=== PATIENT | male | born 1990 | race Hispanic/Latino ===

== ENCOUNTER 2021-12-11 18:08 | Emergency (ER) | payer SELFPAY ==
--- OUTSIDE RECORDS SUMMARY | 2021-12-11 18:11 | XMS REPORT | Continuity of Care Document ---
:1990 Author Organization [facility] t Address [address] [place] [address] Dr. Ann [address] [place] [id number] Care Team Providers Name Role Phone Unavailable Unavailable Unavailable Problems This patient has no known problems. Allergies, Adverse Reactions, Alerts This patient has no known allergies or adverse reactions. Medications This patient has no known medications. Procedures This patient has no known procedures. Results Test Description Test Time Test Comments Results Result Comments Source SARS-CoV-2 (COVID-19), RT-PCR/TMA 2021-08-07 03:07:25 Test Item Value Reference Range Interpretation Comme nts SARS-CoV-2 INTERPRETATION POSITIVE SEE NOTE A S ARS-CoV-2 RNA DETECTEDPositive (test code = 92206) results are indicative of the presence of JAILYN S-CoV-2 RNA;clinical co rrelation with patient history and other diagnosticinfor mation is necessary to de termine patient infection statu s.Positive results do not rule out bacterial infection or co -infectionwith other viruses. Positive and negative predic tive values oftesting are h ighly dependent on prevalence. SOURCE (test code = 60464) NASOPHARYNGEAL Note: Methodology is Seamus Santhosh Real-Time RT-PC R. The expected result or ref erence range is NEGATIVE (Not D etected). For more information reg arding COVID-19 testing to incl ude clinicalinforma tion, methodology detail, intende d use, FDA authorization a ndrecommended fact sheets for margarita ents or healthcare providers, see NewTest Announcement: S ARS-CoV-2 (COVID-19) by N AAT at URL below (note,fact shee ts are provided by method given in report:https:// [email or web address] [email or web address]/client -communications/ Alternatively, see downloadable PDF fact sheet at:https://www. [facility]/COVID- 19-RT-PCR UNLESS OTHERWISE INDICATED, ALL TESTING PERFORMED [facility], [facility]. [address] [place] [address], [place] [address] LABORATORY DIRE CTOR: BEN RODGERS M.D. CLIA NUMBER [id number] [facility]. [id number]
--- NOTE | 2021-12-11 19:55 | RAD REPORT ---
EXAM DESCRIPTION: RAD - Knee Left 3 View - 12/11/2021 7:27 pm CLINICAL HISTORY: PAIN COMPARISON: No comparisons FINDINGS: No fractures confirmed there is no dislocation or periosteal reaction. Faint lucency along the inferior aspect of the patella on the lateral view does not have a correlate on the other sequen janki. Correlation is needed with any focal patella pain. Anterior soft tissues at the patella are prom inent.No joint effusion seen. No joint space narrowing. No soft tissue abnormality. IMPRESSION: No acute fracture confirmed and no joint effusion identified. Lucency along the inferior aspect patella believed to be artifact. Three patella anterior soft tissue swelling. Clinical concerns for internal derangement or occult bony injury could be further assessed with MR im aging.
[2021-12-11] MEDS ORDERED: HYDROCODONE/APAP 10/325 TAB ONE (20:40)
--- NOTE | 2021-12-11 20:41 | ER ---
Nurse's Notes [facility] Name: Lev Rod Age: 31 yrs Sex: Male : 1990 Arrival Date: 12/11/2021 Time: 18:11 Bed Waiting Private MD: Diagnosis: Contusion of left knee Presentation: 12/11 18:41 Chief complaint: Patient states: Fell 3 feet onto L knee. Pt c/o L knee pain and ss decreased ROM. Injury occurred at 0800 this AM. Coronavirus screen: Client denies travel out of the [place] in the last 14 days. Ebola Screen: Patient denies exposure to infectious person. Patient denies travel to an Ebola-affected area in the 21 days before illness onset. Initial Sepsis Screen: Does the patient meet any 2 criteria? No. Patient's initial sepsis screen is negative. Does the patient have a suspected source of infection? No. Patient's initial sepsis screen is negative. Risk Assessment: Do you want to hurt yourself or someone else? Patient reports no desire to harm self or others. Onset of symptoms was December 11, 2021. 18:41 Method Of Arrival: Wheelchair ss 18:41 Acuity: ASHLIE 4 ss Triage Assessment: 20:56 General: Appears uncomfortable, Behavior is calm, cooperative, appropriate for age. tw5 Historical: - Allergies: 18:42 No Known Allergies; ss - Home Meds: 18:42 None [Active]; ss - PMHx: 18:42 None; ss - PSHx: 18:42 None; ss - Immunization history:: Client reports having NOT received the Covid vaccine. - Social history:: Smoking status: Patient reports the use of cigarette tobacco products, smokes one-half pack cigarettes per day. Screenin:32 Abuse screen: Denies threats or abuse. Denies injuries from another. Nutritional tw5 screening: No deficits noted. Tuberculosis screening: No symptoms or risk factors identified. Fall Risk None identified. Assessment: 20:32 General: Reports "I was doing some side work and I fell off the trailer that was about tw5 3 feet high.". Pain: Complains of pain in left knee Pain currently is 4 out of 10 on a pain scale. at worst was 8 out of 10 on a pain scale. Vital Signs: 18:42 Pulse 93; Resp 15; Temp 98.6(TE); Pulse Ox 100% ; Weight 95.25 kg; Height 5 ft. 10 in. ss (177.80 cm); Pain 4/10; 18:44 BP 119 / 82; ss 18:42 Body Mass Index 30.13 (95.25 kg, 177.80 cm) ED Course: 18:11 Patient arrived in ED. mr 18:41 Triage completed. ss 18:42 Arm band placed on right wrist. ss 19:09 Nathan Santiago PA is PHCP. cp 19:09 Daina Lowe MD is Attending Physician. cp 19:28 XRAY Knee LEFT 3 view In Process Unspecified. EDMS 20:32 Patient has correct armband on for positive identification. tw5 20:40 Beto Hong MD is Referral Physician. cp 20:47 No provider procedures requiring assistance completed. Patient did not have IV access tw5 during this emergency room visit. Knee immobilizer applied on left knee. Administered Medications: 20:40 Drug: [place] (HYDROcodone-acetaminophen) 10 mg-325 mg 1 tabs Route: PO; tw5 Medication: 20:32 VIS not applicable for this client. tw5 Outcome: 20:40 Discharge ordered by . cp 20:47 Discharged to home with crutches, with family. tw5 20:47 Condition: good 20:47 Discharge instructions given to patient, Instructed on discharge instructions, follow up and referral plans. crutch walking, Demonstrated understanding of instructions, follow-up care, crutch walking, Prescriptions given X 2. 20:57 Patient left the ED. tw5 Signatures: Dispatcher [employer] LAVT Suzanna Jacobsen Kiya Arzola, RN RN Nathan Santiago PA PA Chelsey Ponce tw5
--- NOTE | 2021-12-11 20:41 | EDPHYS ---
Physician Documentation [facility] Name: Lev Rod Age: 31 yrs Sex: Male : 1990 Arrival Date: 12/11/2021 Time: 18:11 Bed Waiting Private MD: ED Physician Daina Lowe HPI: 12/11 20:30 This 31 yrs old Male presents to ER via Wheelchair with complaints of Fall cp Injury, Knee Injury. 20:30 Details of fall: The patient fell from a height, approximately 3 feet. cp 20:30 Onset: The symptoms/episode began/occurred today. Associated injuries: The patient cp sustained left knee, abrasion, contusion, painful injury. Historical: - Allergies: 18:42 No Known Allergies; ss - Home Meds: 18:42 None [Active]; ss - PMHx: 18:42 None; ss - PSHx: 18:42 None; ss - Immunization history:: Client reports having NOT received the Covid vaccine. - Social history:: Smoking status: Patient reports the use of cigarette tobacco products, smokes one-half pack cigarettes per day. ROS: 20:35 MS/extremity: Positive for pain, swelling, tenderness, of the left knee. cp 20:35 Constitutional: Negative for body aches, chills, fever, poor PO intake. cp 20:35 Neck: Negative for pain with movement, pain at rest, stiffness. cp 20:35 Back: Negative for pain at rest, pain with movement. 20:35 Neuro: Negative for altered mental status, numbness, weakness. 20:35 All other systems are negative. Exam: 20:40 Constitutional: The patient appears in no acute distress, alert, awake, well developed, cp well nourished, uncomfortable. 20:40 Head/Face: Normocephalic, atraumatic. cp 20:40 Chest/axilla: Inspection: normal. 20:40 Cardiovascular: Rate: normal. 20:40 Respiratory: the patient does not display signs of respiratory distress, Respirations: normal, no use of accessory muscles. 20:40 Abdomen/GI: Exam negative for discomfort, distension, guarding, Inspection: abdomen appears normal. 20:40 Back: pain, is absent, ROM is normal. 20:40 Musculoskeletal/extremity: Extremities: grossly normal except: noted in the left knee: abrasion, contusion, pain, swelling, tenderness, ROM: limited passive range of motion due to pain, in the left knee, Perfusion: the extremity is normally perfused throughout, Sensation intact. overlying skin of left knee with no erythema noted. Vital Signs: 18:42 Pulse 93; Resp 15; Temp 98.6(TE); Pulse Ox 100% ; Weight 95.25 kg; Height 5 ft. 10 in. ss (177.80 cm); Pain 4/10; 18:44 BP 119 / 82; ss 18:42 Body Mass Index 30.13 (95.25 kg, 177.80 cm) ss Procedures: 20:45 Splinting: Splint applied to left knee using knee immobilizer, applied by nurse. cp Examined by me, post splint application: neurovascular intact, Patient tolerated well. MDM: 20:40 Patient medically screened. cp 20:40 Data reviewed: vital signs, nurses notes, radiologic studies, plain films. cp 20:40 Differential diagnosis: contusion, fracture, multiple trauma. Test interpretation: by cp ED physician or midlevel provider: plain radiologic studies. Counseling: I had a detailed discussion with the patient and/or guardian regarding: the historical points, exam findings, and any diagnostic results supporting the discharge/admit diagnosis, radiology results, the need for outpatient follow up, a orthopedic surgeon, to return to the emergency department if symptoms worsen or persist or if there are any questions or concerns that arise at home. Response to treatment: the patient's symptoms have mildly improved after treatment, and as a result, I will discharge patient. 12/11 18:44 Order name: XRAY Knee LEFT 3 view; Complete Time: 20:39 ss 12/11 20:40 Order name: Knee Immobilizer cp Administered Medications: 20:40 Drug: [place] (HYDROcodone-acetaminophen) 10 mg-325 mg 1 tabs Route: PO; tw5 Disposition Summary: 12/11/21 20:40 Discharge Ordered Location: Home cp Problem: new cp Symptoms: have improved cp Condition: Stable cp Diagnosis - Contusion of left knee cp Followup: cp - With: Beto Hong MD - When: 2 - 3 days - Reason: Recheck today's complaints Discharge Instructions: - Discharge Summary Sheet cp - How to Use a Knee Immobilizer cp - Acute Knee Pain, Adult cp Forms: - Medication Reconciliation Form cp - Thank You Letter cp - Antibiotic Education cp - Prescription Opioid Use cp Prescriptions: - Diclofenac Sodium 75 mg Oral Tablet Sustained Release - take 1 tablet by ORAL route 2 times per day; 30 tablet; Refills: 0, Product cp Selection Permitted - Tylenol-Codeine #3 300 mg-30 mg Oral - take 2 tablet by ORAL route every 6-8 hours As needed; 20 tablet; Refills: 0, cp Product Selection Permitted Signatures: Dispatcher [employer] Kiya Mendiola RN RN ss Nathan Santiago PA PA Chelsey Ponce tw5
[2021-12-11 21:04] VITALS: TEMP 98.6; O2SAT 100
[2021-12-11 21:05] VITALS: BP 119/82
== END 2021-12-11 20:57 | disposition home or self-care (01) ==
LOC: ER 18:08
DX: S80.02XA Contusion of left knee, initial encounter (principal); W17.89XA Other fall from one level to another, initial encounter; F17.210 Nicotine dependence, cigarettes, uncomplicated
CPT/HCPCS: 99284

== ENCOUNTER 2025-04-19 20:20 | Emergency (ER) | payer SELFPAY ==
[2025-04-19] MEDS ORDERED: DIPHENHYDRAMINE 50 MG/ML VIAL ONE ×2 (20:57→21:22)
[2025-04-19] MEDS ORDERED: FAMOTIDINE 20 MG/2 ML VIAL IV ONE (20:57)
[2025-04-19] MEDS ORDERED: METHYLPREDNISOLONE 125 MG INJ ONE (20:57)
[2025-04-19] MEDS ORDERED: NA CHLORIDE 0.9% 0 ML ONE (20:57)
[2025-04-19] MEDS ORDERED: NA CHLORIDE 0.9% 1,000 ML ONE ×2 (21:22→23:26)
[2025-04-19] MEDS ORDERED: KETOROLAC 30 MG/ML INJ ONE (21:22)
[2025-04-19] MEDS ORDERED: METOCLOPRAMIDE 10 MG/2mL INJ ONE (21:22)
[2025-04-19 21:27] LABS: Absolute Lymphocytes (CBC) 1.5 K/uL (0.7-4.9); Hematocrit 45.7 % (39.6-49.0); Hemoglobin 15.5 g/dL (13.6-17.9); MCH 30.6 pg (27.0-35.0); MCHC 34.0 g/dL (32.0-36.0); MCV 90.2 fL (80-100); MPV 8.8 fL (7.6-11.3); Nucleated RBC Absolute Count 0.0 (0-0); Nucleated Red Blood Cells % 0.1 % (0-0); RBC Red Blood Cell Count 5.06 M/uL (4.33-5.43); White Blood Count 10.50 thou/uL (4.3-10.9)
[2025-04-19 21:33] LABS: PT Prothrombin Time 12.8 SECONDS (10-13.0); Protime INR 1.14
--- NOTE | 2025-04-19 21:35 | RAD REPORT ---
Procedure: Chest Single View HISTORY: Chest pain COMPARISON: 2012 FINDINGS: The lungs appear clear of acute infiltrate. No significant pleural effusion noted. The heart is normal size.. Old right clavicular fracture. IMPRESSION: No acute abnormality is displayed.
[2025-04-19] MEDS ORDERED: ONDANSETRON 4 MG/2 ML VIAL ONE (21:43)
[2025-04-19 21:51] LABS: ALT/SGPT 24.0 U/L (16-61); AST/SGOT 14.0 U/L (15-37); Albumin 4.5 g/dL (3.4-5.0); Albumin/Globulin Ratio 1.5 (1.1-1.8); Alkaline Phosphatase 58.0 U/L (45-117); Anion Gap 10.4 mEq/L (5.0-15.0); BUN Blood Urea Nitrogen 13.0 mg/dL (7-18); Bilirubin Indirect, Calculated 1.3 mg/dL (0.2-0.8); Globulin 3.0 g/dL (2.3-3.5); Glucose Level 123.0 mg/dL (74-106); Magnesium 1.9 mg/dL (1.6-2.4); NT PRO-BNP 14.0 pg/mL (<125); Potassium 3.4 mEq/L (3.5-5.1); Troponin High Sensitivity 3.5 pg/mL (<58.9)
--- NOTE | 2025-04-19 22:16 | RAD REPORT ---
EXAM: CT brain without contrast HISTORY: Headache COMPARISON: None TECHNIQUE: Multiple contiguous axial images were obtained and a CT of the brain without contrast.. Sagittal and coronal reconstruction performed. Automated exposure control, adjustment of the mA and/or kV according to patient size, and/or iterative reconstruction. Unless otherwise specified, incidental f indings do not require dedicated imaging follow-up FINDINGS: An intracranial bleed is not seen Ventricles are normal caliber No extra-axial fluid collection noted No significant hypodensity within the brain No fluid within the visualized sinuses or mastoids noted. IMPRESSION: No acute intracranial abnormality noted. If the patient continues to have symptoms to suggest an acute intracranial abnormality then MRI of th e brain would be recommended.
[2025-04-19 22:43] LABS: Influenza A Ag Negative; Influenza B Ag Negative; SARS-CoV-2 Antigen Rapid Res Negative (Negative)
[2025-04-19] MEDS ORDERED: ACETAMINOPHEN 500 MG TAB ONE (23:25)
[2025-04-19] MEDS ORDERED: MORPHINE 4 MG/ML SYR ONE (23:26)
--- NOTE | 2025-04-20 00:48 | ER ---
Nurse's Notes [facility] Name: Lev Rod Age: 35 yrs Sex: Male : 1990 Arrival Date: 04/19/2025 Time: 20:20 Bed 19 Private MD: Diagnosis: Acute viral syndrome, acute viral gastroenteritis, acute moderate headache Presentation: 04/19 20:31 Chief complaint: Patient states: c/o migraine for 6 days 10/10 stabbing behing right me1 eye and to posterior head with n/v. Near syncope yesterday and today, L arm numbness that started today and rash to L abdomen from 2 days ago. Actively vomiting in triage. Coronavirus screen: Vaccine status: Patient reports being unvaccinated. Ebola Screen: No symptoms or risks identified at this time. Initial Sepsis Screen: Does the patient meet any 2 criteria? No. Patient's initial sepsis screen is negative. Does the patient have a suspected source of infection? No. Patient's initial sepsis screen is negative. Risk Assessment: Do you want to hurt yourself or someone else? Patient reports no desire to harm self or others. Onset of symptoms was April 13, 2025. 20:31 Method Of Arrival: Wheelchair me1 20:31 Acuity: ASHLIE 3 me1 Triage Assessment: 20:33 Headache History: The patient has had previous headaches and this one is less severe me1 than previous episodes. 04/20 01:07 Pain: Pain began 6 days ago. zm Historical: - Allergies: 04/19 20:33 Amoxicillin; me1 - PMHx: 20:33 migraines; me1 - PSHx: 20:33 None; me1 - Immunization history:: Adult Immunizations up to date. - Infectious Disease History:: Denies. - Social history:: Smoking status: Patient reports the use of cigarette tobacco products, smokes one-half pack cigarettes per day. - Family history:: not pertinent. Screenin:33 [facility] ED Fall Risk Assessment (Adult) History of falling in the last 3 months, zm including since admission No falls in past 3 months (0 pts) Confusion or Disorientation No (0 pts) Intoxicated or Sedated No (0 pts) Impaired Gait No (0 pts) Mobility Assist Device Used No (0 pt) Altered Elimination No (0 pt) Score/Fall Risk Level 0 - 2 = Low Risk Oriented to surroundings, Maintained a safe environment, Educated pt \T\ family on fall prevention, incl call for assistance when getting out of bed, Assessed \T\ reinforced patient's understanding of fall precautions, Hourly rounding (assess needs \T\ fall precautionary measures) done, Used ambulatory aids as needed (educated on \T\ assisted with), Used gait belt as appropriate. Abuse screen: Denies threats or abuse. Denies injuries from another. Nutritional screening: No deficits noted. Tuberculosis screening: No symptoms or risk factors identified. Assessment: 21:29 General: Appears in no apparent distress. uncomfortable, Behavior is calm, cooperative. zm Pain: Complains of pain in occipital area and base of the skull Pain currently is 10 out of 10 on a pain scale. Also complains of. Neuro: Level of Consciousness is awake, alert, obeys commands, Oriented to person, place, time, situation, Speech is normal, Facial symmetry appears normal, Pupils are PERRLA, Reports blurred vision when headache gets really bad dizziness, since this morning a syncopal episode. Cardiovascular: Patient's skin is warm and dry. Respiratory: Airway is patent Respiratory effort is even, unlabored, Respiratory pattern is regular, symmetrical. GI: Abdomen is flat, non-distended, Abd is soft and non tender X 4 quads. Derm: Rash noted that is red, on left low back, left mid back and abdomen. 22:13 Reassessment: Medication complete, pt states that he feels worse after receiving bm8 medications. pt is lying in bed appears to be trying to sleep. 23:04 Reassessment: Patient appears in no apparent distress at this time. Patient and/or bm8 family updated on plan of care and expected duration. Pain level reassessed. Patient is alert, oriented x 3, equal unlabored respirations, skin warm/dry/pink. Patient states symptoms have not improved. 04/20 00:24 Reassessment: Patient appears in no apparent distress at this time. Patient and/or bm8 family updated on plan of care and expected duration. Pain level reassessed. Patient is alert, oriented x 3, equal unlabored respirations, skin warm/dry/pink. Patient states feeling better. Patient states symptoms have improved. Pain: Pain currently is 4 out of 10 on a pain scale. Neuro: No deficits noted. Level of Consciousness is awake, alert, obeys commands, Oriented to person, place, time, situation. 01:04 Reassessment: Patient appears in no apparent distress at this time. Patient and/or zm family updated on plan of care and expected duration. Pain level reassessed. Patient is alert, oriented x 3, equal unlabored respirations, skin warm/dry/pink. Patient states feeling better. Patient states symptoms have improved. Pain: Pain currently is 0 out of 10 on a pain scale. Vital Signs: 04/19 20:31 BP 138 / 63; Pulse 68; Resp 18; Temp 98.4; Pulse Ox 96% ; Weight 88.45 kg; Height 5 ft. me1 10 in. ; Pain 10/10; 22:13 Pulse 55; Resp 17; Temp 98.4; Pulse Ox 99% ; Pain 10/10; bm8 23:04 BP 118 / 54; Pulse 51; Resp 15; Temp 98.4; Pulse Ox 97% ; Pain 9/10; bm8 04/20 00:24 BP 125 / 74; Pulse 51; Resp 17; Temp 98.4; Pulse Ox 100% ; Pain 0/10; bm8 01:04 BP 127 / 78; Pulse 71; Resp 18; Temp 98.5; Pulse Ox 98% on R/A; Pain 0/10; zm 04/19 20:31 Body Mass Index 27.98 (88.45 kg, 177.8 cm) [facility] 04/19 20:31 Pain Scale: Adult me1 22:13 Pain Scale: Adult bm8 23:04 Pain Scale: Adult bm8 04/20 00:24 Pain Scale: Adult bm8 01:04 Pain Scale: Adult zm 04/19 22:13 pt refuses to hold still long enough for bp reading bm8 [place] Coma Score: 22:13 Eye Response: spontaneous(4). Motor Response: obeys commands(6). Verbal Response: bm8 oriented(5). Total: 15. 23:04 Eye Response: spontaneous(4). Motor Response: obeys commands(6). Verbal Response: bm8 oriented(5). Total: 15. 04/20 00:24 Eye Response: spontaneous(4). Motor Response: obeys commands(6). Verbal Response: bm8 oriented(5). Total: 15. 01:04 Eye Response: spontaneous(4). Motor Response: obeys commands(6). Verbal Response: zm oriented(5). Total: 15. 06:51 Eye Response: spontaneous(4). Motor Response: obeys commands(6). Verbal Response: sp4 oriented(5). Total: 15. ED Course: 04/19 20:23 Patient arrived in ED. gm2 20:29 Cy Bridges MD is Attending Physician. sp4 20:33 Triage completed. me1 20:33 Arm band placed on Patient placed in waiting room. me1 20:59 Brandee Larkin, RN is Primary Nurse. zm 21:15 Inserted saline lock: 18 gauge in right antecubital area, using aseptic technique. zm Blood collected. Flushed with 10 mL NS. 21:15 Initial lab(s) drawn, by tx, sent to lab. EKG done, by ED staff, reviewed by Cy Bridges MD. 21:21 XRAY Chest (1 view) In Process Unspecified. EDMS 21:21 Basic Metabolic Panel Sent. zm 21:21 CBC with Diff Sent. zm 21:21 LFT's Sent. zm 21:21 Magnesium Sent. zm 21:21 NT PRO-BNP Sent. zm 21:21 PT-INR Sent. zm 21:21 Troponin HS Sent. 21:33 Patient has correct armband on for positive identification. Bed in low position. Call light in reach. Side rails up X 1. Adult w/ patient. Client placed on continuous cardiac and pulse oximetry monitoring. NIBP monitoring applied. laboratory monitor on. Pulse ox on. NIBP on. Door closed. Noise minimized. Lights dimmed. Warm blanket given. Verbal reassurance given. 21:47 CT Head Brain wo Cont In Process Unspecified. EDMS 22:13 No provider procedures requiring assistance completed. bm8 04/20 01:04 Provided Education on: post ER care. zm 01:04 IV discontinued, intact, bleeding controlled, No redness/swelling at site. Pressure zm dressing applied. Administered Medications: 04/19 21:26 Drug: metoCLOPramide IVP 10 mg IVP once; over 1 to 2 minutes Route: IVP; Site: right zm antecubital; :26 Follow up: Response: No adverse reaction 8 : Drug: diphenhydrAMINE IVP 25 mg IVP once Route: IVP; Site: right antecubital; zm 22:26 Follow up: Response: No adverse reaction bm8 21:26 Drug: Ketorolac IVP 30 mg IVP once Route: IVP; Site: right antecubital; zm 22:26 Follow up: Response: No adverse reaction bm8 21:27 Drug: NS 0.9% IV 1000 ml IV at 1000 ml once; to be given as a bolus over 60 minutes zm Route: IV; Rate: 1000 ml; Site: right antecubital; 22:26 Follow up: Response: No adverse reaction; IV Status: Completed infusion bm8 21:50 Drug: Droperidol IVP 2.5 mg IVP once Route: IVP; Site: right antecubital; bm8 22:25 Follow up: Response: No adverse reaction bm8 21:51 Drug: Ondansetron IVP 8 mg IVP once; over 2 minutes Route: IVP; Site: right antecubital;bm8 22:25 Follow up: Response: No adverse reaction bm8 23:35 Drug: morphine IVP or IV 4 mg IVP once over 4 mins Route: IVP; Infused Over: 4 mins; bm8 Site: right antecubital; 04/20 00:28 Follow up: Response: No adverse reaction bm8 04/19 23:35 Drug: NS 0.9% IV 1000 ml IV at 1000 ml once; to be given as a bolus over 60 minutes bm8 Route: IV; Rate: 1000 ml; Site: right antecubital; 04/20 00:28 Follow up: Response: No adverse reaction; IV Status: Completed infusion bm8 04/19 23:35 Drug: Droperidol IVP 2.5 mg IVP once Route: IVP; Site: right antecubital; bm8 04/20 00:28 Follow up: Response: No adverse reaction bm8 04/19 23:35 Drug: Acetaminophen PO 1000 mg PO once Route: PO; bm8 04/20 00:28 Follow up: Response: No adverse reaction bm8 Medication: 04/19 21:35 VIS not applicable for this client. jaymie Outcome: 04/20 00:47 Discharge ordered by MD. wick 01:04 Discharged to home ambulatory, with family, jaymie 01:04 Condition: stable 01:04 Discharge instructions given to patient, family, Instructed on discharge instructions, follow up and referral plans. no drinking with medication, no driving heavy equipment, medication usage, safety practices, Demonstrated understanding of instructions, follow-up care, medications, Prescriptions given X 4, 01:07 Patient left the ED. zm Signatures: Dispatcher [employer] Brandee Dykes, RN RN zm Cy Bridges MD MD sp4 Nata Hoover RN RN tx1 Madelin Ba 2 Jimmy Valdovinos RN RN bm8 Corrections: (The following items were deleted from the chart) 04/19 21:33 21:29 Neuro: Level of Consciousness is awake, alert, obeys commands, Oriented to zm person, place, time, situation, zm
--- NOTE | 2025-04-20 00:48 | EDPHYS ---
Physician Documentation [facility] Name: Lev Rod Age: 35 yrs Sex: Male : 1990 Arrival Date: 04/19/2025 Time: 20:20 Bed 19 Private MD: ED Physician Cy Bridges HPI: 04/19 20:29 This 35 yrs old Male presents to ER via Unassigned with complaints of Numbness sp4 Of Arm, Headache, Syncope. 04/20 06:51 35-year-old male presents with complaint of acute headache, fever, chills, body aches, sp4 and vomiting. Historical: - Allergies: 04/19 20:33 Amoxicillin; me1 - PMHx: 20:33 migraines; me1 - PSHx: 20:33 None; me1 - Immunization history:: Adult Immunizations up to date. - Infectious Disease History:: Denies. - Social history:: Smoking status: Patient reports the use of cigarette tobacco products, smokes one-half pack cigarettes per day. - Family history:: not pertinent. ROS: 04/20 06:51 Constitutional: Positive for fever, positive chills, positive headache, positive near sp4 syncope, positive for acute vomiting, All other systems are negative, Exam: 06:51 Constitutional: This is a well developed, well nourished patient who is awake, alert, sp4 ill-appearing, vomiting on examination Head/Face: Normocephalic, atraumatic. Eyes: Pupils equal round and reactive to light, extra-ocular motions intact. Lids and lashes normal. Conjunctiva and sclera are not injected. Cornea within normal limits. Periorbital areas with no swelling, redness, or edema. ENT: Nares patent. No nasal discharge, no septal abnormalities noted. Tympanic membranes are normal and external auditory canals are clear. Oropharynx with no redness, swelling, or masses, exudates, or evidence of obstruction, uvula midline. Mucous membranes moist. Neck: Trachea midline, no thyromegaly or masses palpated, and no cervical lymphadenopathy. Supple, full range of motion without nuchal rigidity, or vertebral point tenderness. Chest/axilla: Normal chest wall appearance and motion. Nontender with no deformity. No lesions are appreciated. Cardiovascular: Regular rate and rhythm with a normal S1 and S2. No gallops, murmurs, or rubs. No pulse deficits. Respiratory: Lungs have equal breath sounds bilaterally, clear to auscultation and percussion. No rales, rhonchi or wheezes noted. No increased work of breathing, no retractions or nasal flaring. Abdomen/GI: Soft, with normal bowel sounds. No distension or tympany. No guarding or rebound. No evidence of tenderness throughout. Back: No spinal tenderness. No costovertebral tenderness. Skin: Warm, dry with normal turgor. Normal color with no rashes, no lesions, and no evidence of cellulitis. MS/ Extremity: Pulses equal, no cyanosis. Neurovascular intact. Full, normal range of motion. Neuro: Awake and alert, GCS 15, oriented to person, place, time, and situation. Cranial nerves II-XII grossly intact. Motor strength 5/5 in all extremities. Sensory grossly intact. Psych: Awake, alert, with orientation to person, place and time. Behavior, mood, and affect are within normal limits 06:51 ECG was reviewed by the Attending Physician. EKG at 2114 normal sinus rhythm rate 62 normal EKG Vital Signs: 04/19 20:31 BP 138 / 63; Pulse 68; Resp 18; Temp 98.4; Pulse Ox 96% ; Weight 88.45 kg; Height 5 ft. me1 10 in. ; Pain 10/10; 22:13 Pulse 55; Resp 17; Temp 98.4; Pulse Ox 99% ; Pain 10/10; bm8 23:04 BP 118 / 54; Pulse 51; Resp 15; Temp 98.4; Pulse Ox 97% ; Pain 9/10; bm8 04/20 00:24 BP 125 / 74; Pulse 51; Resp 17; Temp 98.4; Pulse Ox 100% ; Pain 0/10; bm8 01:04 BP 127 / 78; Pulse 71; Resp 18; Temp 98.5; Pulse Ox 98% on R/A; Pain 0/10; zm 04/19 20:31 Body Mass Index 27.98 (88.45 kg, 177.8 cm) ct1 04/19 20:31 Pain Scale: Adult me1 22:13 Pain Scale: Adult bm8 23:04 Pain Scale: Adult bm8 04/20 00:24 Pain Scale: Adult bm8 01:04 Pain Scale: Adult zm 04/19 22:13 pt refuses to hold still long enough for bp reading bm8 [place] Coma Score: 22:13 Eye Response: spontaneous(4). Motor Response: obeys commands(6). Verbal Response: bm8 oriented(5). Total: 15. 23:04 Eye Response: spontaneous(4). Motor Response: obeys commands(6). Verbal Response: bm8 oriented(5). Total: 15. 04/20 00:24 Eye Response: spontaneous(4). Motor Response: obeys commands(6). Verbal Response: bm8 oriented(5). Total: 15. 01:04 Eye Response: spontaneous(4). Motor Response: obeys commands(6). Verbal Response: zm oriented(5). Total: 15. 06:51 Eye Response: spontaneous(4). Motor Response: obeys commands(6). Verbal Response: sp4 oriented(5). Total: 15. MDM: 04/19 20:30 Medical Screening Exam initiated sp4 21:14 Differential diagnosis: contusion, abrasion, tendonitis, Acute viral illness. Data sp4 reviewed: vital signs, nurses notes, lab test result(s), EKG, radiologic studies, CT scan, plain films. ED course: EXAM: CT brain without contrast HISTORY: Headache COMPARISON: None TECHNIQUE: Multiple contiguous axial images were obtained and a CT of the brain without contrast.. Sagittal and coronal reconstruction performed. Automated exposure control, adjustment of the mA and/or kV according to patient size, and/or iterative reconstruction. Unless otherwise specified, incidental findings do not require dedicated imaging follow-up FINDINGS: An intracranial bleed is not seen Ventricles are normal caliber No extra-axial fluid collection noted No significant hypodensity within the brain No fluid within the visualized sinuses or mastoids noted. IMPRESSION: No acute intracranial abnormality noted. If the patient continues to have symptoms to suggest an acute intracranial abnormality then MRI of the brain would be recommended. . ED course: COMPARISON: 2012 FINDINGS: The lungs appear clear of acute infiltrate. No significant pleural effusion noted. The heart is normal size.. Old right clavicular fracture. IMPRESSION: No acute abnormality is displayed.. 04/19 20:29 Order name: Basic Metabolic Panel; Complete Time: 23:14 sp4 04/19 20:29 Order name: CBC with Diff; Complete Time: 23:14 04/19 20:29 Order name: LFT's; Complete Time: 23:14 04/19 20:29 Order name: Magnesium; Complete Time: 23:14 04/19 20:29 Order name: NT PRO-BNP; Complete Time: 23:14 04/19 20:29 Order name: PT-INR; Complete Time: 23:14 04/19 20:29 Order name: Troponin HS; Complete Time: 23:14 04/19 21:26 Order name: COVID-19 Ag + Flu A+B Ag; Complete Time: 23:14 04/19 20:29 Order name: XRAY Chest (1 view); Complete Time: 23:04/19 21:18 Order name: CT Head Brain wo Cont; Complete Time: 23:14 04/19 20:29 Order name: EKG; Complete Time: 20:30 04/19 20:29 Order name: Cardiac monitoring; Complete Time: 21:21 04/19 20:29 Order name: EKG - Nurse/Tech; Complete Time: 21:21 04/19 20:29 Order name: IV [place] Lock; Complete Time: 21:21 04/19 20:29 Order name: Labs collected and sent; Complete Time: 21:21 04/19 20:29 Order name: O2 Per Protocol; Complete Time: 21:21 04/19 20:29 Order name: O2 Sat Monitoring; Complete Time: 21:21 EC:14 Rate is 62 beats/min. Rhythm is regular, Normal Sinus Rhythm. QRS [place] is Normal. [place] sp4 interval is normal. QRS interval is normal. QT interval is normal. No Q waves. T waves are Normal. No ST changes noted. Clinical impression: Normal ECG. Interpreted by me. Reviewed by me. Administered Medications: : Drug: metoCLOPramide IVP 10 mg IVP once; over 1 to 2 minutes Route: IVP; Site: right zm antecubital; 22:26 Follow up: Response: No adverse reaction bm8 21:26 Drug: diphenhydrAMINE IVP 25 mg IVP once Route: IVP; Site: right antecubital; zm 22:26 Follow up: Response: No adverse reaction bm8 21:26 Drug: Ketorolac IVP 30 mg IVP once Route: IVP; Site: right antecubital; zm 22:26 Follow up: Response: No adverse reaction bm8 21:27 Drug: NS 0.9% IV 1000 ml IV at 1000 ml once; to be given as a bolus over 60 minutes zm Route: IV; Rate: 1000 ml; Site: right antecubital; 22:26 Follow up: Response: No adverse reaction; IV Status: Completed infusion bm8 21:50 Drug: Droperidol IVP 2.5 mg IVP once Route: IVP; Site: right antecubital; bm8 22:25 Follow up: Response: No adverse reaction bm8 21:51 Drug: Ondansetron IVP 8 mg IVP once; over 2 minutes Route: IVP; Site: right antecubital;bm8 22:25 Follow up: Response: No adverse reaction bm8 23:35 Drug: morphine IVP or IV 4 mg IVP once over 4 mins Route: IVP; Infused Over: 4 mins; bm8 Site: right antecubital; 04/20 00:28 Follow up: Response: No adverse reaction 8 04/19 23:35 Drug: NS 0.9% IV 1000 ml IV at 1000 ml once; to be given as a bolus over 60 minutes bm8 Route: IV; Rate: 1000 ml; Site: right antecubital; 04/20 00:28 Follow up: Response: No adverse reaction; IV Status: Completed infusion bm8 04/19 23:35 Drug: Droperidol IVP 2.5 mg IVP once Route: IVP; Site: right antecubital; bm8 04/20 00:28 Follow up: Response: No adverse reaction bm8 04/19 23:35 Drug: Acetaminophen PO 1000 mg PO once Route: PO; bm8 04/20 00:28 Follow up: Response: No adverse reaction bm8 Disposition: 04/19 21:14 Chart complete. sp4 Disposition Summary: 04/20/25 00:47 Discharge Ordered Notes: Location: Home sp4 Problem: new sp4 Symptoms: have improved sp4 Condition: Stable sp4 Diagnosis - Acute viral syndrome, acute viral gastroenteritis, acute moderate headache sp4 Followup: sp4 - With: Private Physician - When: 7 - 10 days - Reason: Recheck today's complaints Discharge Instructions: - Discharge Summary Sheet sp4 - Viral Gastroenteritis, Adult, [id number] sp4 Forms: - Work release form sp4 - Patient Portal Instructions sp4 Prescriptions: - Fioricet 50-300-40 mg Oral capsule - take 1 capsule ORAL route 3 times per day PRN headache; 30 capsule; Refills: 0, sp4 Product Selection Permitted - meloxicam 15 mg Oral tablet - take 1 tablet ORAL route daily PRN pain; 30 tablet; Refills: 0, Product sp4 Selection Permitted - Tramadol 50 mg Oral Tablet - take 1 tablet ORAL route every 8 hours as needed; 12 tablet; Refills: 0, sp4 Product Selection Permitted - ondansetron 8 mg Oral Tablet,disintegrating - take 1 tablet ORAL route every 8 hours PRN nausea; 30 tablet; Refills: 0, sp4 Product Selection Permitted Signatures: Dispatcher [employer] EDMS Brandee Larkin, RN RN zm Cy Bridges MD MD sp4 Nata Hoover RN RN me1 Jimmy Valdovinos RN RN bm8 Corrections: (The following items were deleted from the chart) 21:18 21:18 Head Brain Wo Cont+CT.RAD.BRZ ordered. EDMS EDMS 21:27 21:27 COVID-19 Ag + Flu A+B Ag+I.LAB.BRZ ordered. EDMS EDMS
[2025-04-20 02:35] VITALS: BP 127/78; TEMP 98.5; O2SAT 98
== END 2025-04-20 01:07 | disposition home or self-care (01) ==
LOC: ER 20:20
DX: A08.4 Viral intestinal infection, unspecified (principal); R55 Syncope and collapse; R51.9 Headache, unspecified; R20.0 Anesthesia of skin; F17.210 Nicotine dependence, cigarettes, uncomplicated; Z88.1 Allergy status to other antibiotic agents; Z11.52 Encounter for screening for COVID-19
CPT/HCPCS: 36415; 70450; 71045; 80048; 80076; 83735; 83880; 84484; 85025; 85610; 87428; 93005; 96361; 96374; 96375; 99285; J1200; J1790; J2405; J2765; J2919; J7030